=== PATIENT | male | born 1995 | race Caucasian/White ===

== ENCOUNTER 2021-07-06 09:40 | Emergency (ER) | payer OTHER ==
[~2021-07-06 09:40] MED LIST: AUGMENTIN 875-1 EACH PO; LODINE CAP 300300 MG PO; PENVEE K 500 M500 MG PO; PERCOCET 5-3251 EACH PO
[2021-07-06] MEDS ORDERED: AUGMENTIN 875-1 EACH PO (10:07)
== END 2021-07-06 10:25 | disposition home or self-care (01) ==
LOC: ER1 09:40
DX: K04.7 Periapical abscess without sinus (principal); F17.200 Nicotine dependence, unspecified, uncomplicated
CPT/HCPCS: 99283